=== PATIENT | male | born 1955 | race Caucasian/White ===

== ENCOUNTER → 2017-06-13 | Outpatient (CLI) | payer OTHER ==
--- NOTE | 2017-06-13 14:34 | CT ---
EXAMINATION TYPE: CT chest w con DATE OF EXAM: 06/13/2017 COMPARISON: 06/22/2016 HISTORY: nodule CT DLP: 181.8 mGycm Automated exposure control for dose reduction was used. CONTRAST: CT scan of the chest is performed with IV Contrast, patient injected with 100 mL of Omnipaque 300. FINDINGS: LUNGS: Stable 3 mm nodule superior segment right lower lobe unchanged from previous exam. Vague addit ional nodule previously noted measuring 5 mm anteriorly with more likely within the right upper lobe rather than reported right middle lobe. 1 mm nodule axial image 40 upper lobe retrospectively stable. Calcified granuloma within the right lower lobe also noted. Severe emphysematous changes are noted. Linear density near the left lower lobe appears more likely r elated to scar and atelectasis coronal and sagittal image without discrete nodularity. MEDIASTINUM: There are no greater than 1 cm hilar or mediastinal lymph nodes. No pericardial effusi on is seen. OTHER: Hypertrophic and degenerative change of the spine noted. IMPRESSION: 1. Stable 5 mm or less pulmonary nodules unchanged from previous exam. Continued follow-up to carlos t two-year stability recommended. 2. Severe emphysema.
== END | disposition home or self-care (01) ==
LOC: RADCTMAIN 13:08
PROVIDERS: ATTEND Internal Medicine Critical Care Medicine
DX: J43.9 Emphysema, unspecified (principal); R91.8 Other nonspecific abnormal finding of lung field
CPT/HCPCS: 71260; Q9967

== ENCOUNTER 2018-07-04 14:46 | Emergency (ER) | payer OTHER ==
[2018-07-04] MEDS ORDERED: IPRATROPIUM-ALBUTEROL 3 ML NEB INHALATION STA (15:29)
[2018-07-04] MEDS ORDERED: methylPREDNISolone SOD SUCCI 125 MG/2 ML VIAL IV STA (15:29)
[2018-07-04] MEDS ORDERED: SODIUM CHLORIDE 0.9% 500 ML IV STA (15:29)
[2018-07-04] MEDS ORDERED: SODIUM CHLORIDE 0.9% 1,000 ML IV STA (15:29)
[2018-07-04 16:16] LABS: Basophils % (A) 0 %; Eosinophils # (A) 0.1 k/uL (0-0.7); Eosinophils % (A) 2 %; HCT 45.4 % (39.0-53.0); Lymphocytes # (A) 2.2 k/uL (1.0-4.8); Lymphocytes % (A) 32 %; MCH 30.5 pg (25.0-35.0); MCHC 33.1 g/dL (31.0-37.0); MCV 92.4 fL (80.0-100.0); Mean Platelet Volume 6.7; Monocytes # (A) 0.5 k/uL (0-1.0); Monocytes % (A) 7 %; Neutrophils # (A) 3.9 k/uL (1.3-7.7); Neutrophils % (A) 58 %; Platelet Count 262 k/uL (150-450); RBC 4.91 m/uL (4.30-5.90); RDW 13.6 % (11.5-15.5); WBC 6.8 k/uL (3.8-10.6)
[2018-07-04 16:22] LABS: INR 1.1 (<1.2); Partial Thromboplastin Time 24.1 sec (22.0-30.0); Prothrombin Time 10.4 sec (9.0-12.0)
[2018-07-04 16:31] LABS: ALT 29 U/L (21-72); AST 24 U/L (17-59); Albumin 4.6 g/dL (3.5-5.0); Alkaline Phosphatase 51 U/L (38-126); Anion Gap 10 mmol/L; Blood Urea Nitrogen 9 mg/dL (9-20); Calcium 9.8 mg/dL (8.4-10.2); Carbon Dioxide 23 mmol/L (22-30); Chloride 109 mmol/L (98-107); Glucose 95 mg/dL (74-99); Magnesium 2.1 mg/dL (1.6-2.3); Potassium 4.3 mmol/L (3.5-5.1); Sodium 142 mmol/L (137-145); Total Bilirubin 0.7 mg/dL (0.2-1.3); Total Protein 7.6 g/dL (6.3-8.2)
--- NOTE | 2018-07-04 16:41 | ED ---
URI HPI - General Chief Complaint: Upper Respiratory Infection Stated Complaint: Cough, Diff Breathing Time Seen by Provider: 07/04/18 15:07 Source: patient, RN notes reviewed, old records reviewed Mode of arrival: ambulatory Limitations: no limitations - History of Present Illness Initial Comments: Patient is a 62-year-old male presents emergency department today with chief complaint of cough congestion shortness of breath. Patient states that he is currently homeless. He does have history of COPD. He denies a significant chest pain at this time. States he has been having hard time sleeping due to coughing. He has used his inhaler more frequently. Patient states that he does not smoke at this time. 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 - Related Data Home Medications Medication Instructions Recorded Confirmed Cold & Flu; Day & Night 1 tab PO BID 07/04/18 07/04/18 Paliperidone [Invega] 1.5 mg PO DAILY 07/04/18 07/04/18 QUEtiapine FUMARATE [SEROquel] 50 mg PO HS 07/04/18 07/04/18 Sertraline HCl [Zoloft] 200 mg PO DAILY 07/04/18 07/04/18 Previous Rx's Medication Instructions Recorded Levofloxacin [Levaquin] 750 mg PO DAILY 3 Days #5 tab 07/04/18 guaiFENesin-DM 600/30MG [Mucinex 1 each PO Q12HR #20 tab.er.12h 07/04/18 Dm] predniSONE 50 mg PO DAILY #7 tablet 07/04/18 Allergies Allergy/AdvReac Type Severity Reaction Status Date / Time No Known Allergies Allergy Verified 07/04/18 15:12 Review of Systems ROS Statement: Those systems with pertinent positive or pertinent negative responses have been documented in the HPI. ROS Other: All systems not noted in ROS Statement are negative. Past Medical History Past Medical History: Fibromyalgia Additional Past Medical History / Comment(s): neck and back pain History of Any Multi-Drug Resistant Organisms: None Reported Past Surgical History: Orthopedic Surgery Additional Past Surgical History / Comment(s): eye, carpal tunnel, left rotator cuff Past Psychological History: Anxiety, Depression Smoking Status: Current every day smoker Past Alcohol Use History: None Reported Past Drug Use History: None Reported General Exam - General Exam Comments Initial Comments: Pleasant 62-year-old male. Alert and oriented. No acute distress. Limitations: no limitations General appearance: alert, in no apparent distress Head exam: Present: atraumatic, normocephalic, normal inspection Eye exam: Present: normal appearance, PERRL, EOMI. Absent: scleral icterus, conjunctival injection, periorbital swelling ENT exam: Present: normal exam, mucous membranes moist Neck exam: Present: normal inspection. Absent: tenderness, meningismus, lymphadenopathy Respiratory exam: Present: normal lung sounds bilaterally. Absent: respiratory distress, wheezes, rales, rhonchi, stridor Cardiovascular Exam: Present: regular rate, normal rhythm, normal heart sounds. Absent: systolic murmur, diastolic murmur, rubs, gallop, clicks GI/Abdominal exam: Present: soft, normal bowel sounds. Absent: distended, tenderness, guarding, rebound, rigid Course Vital Signs 07/04/18 07/04/18 07/04/18 14:48 15:36 15:55 Temperature 98.5 F Pulse Rate 92 86 84 Respiratory 22 Rate Blood Pressure 143/84 O2 Sat by Pulse 95 Oximetry 07/04/18 07/04/18 16:56 16:57 Temperature Pulse Rate 81 Respiratory 18 Rate Blood Pressure 147/83 O2 Sat by Pulse 97 Oximetry Medical Decision Making - Lab Data Result diagrams: 07/04/18 15:55 07/04/18 15:55 Lab Results 07/04/18 07/04/18 07/04/18 Range/Units 15:55 15:55 15:55 WBC 6.8 (3.8-10.6) k/uL RBC 4.91 (4.30-5.90) m/uL Hgb 15.0 (13.0-17.5) gm/dL Hct 45.4 (39.0-53.0) % MCV 92.4 (80.0-100.0) fL MCH 30.5 (25.0-35.0) pg MCHC 33.1 (31.0-37.0) g/dL RDW 13.6 (11.5-15.5) % Plt Count 262 (150-450) k/uL Neutrophils % 58 % Lymphocytes % 32 % Monocytes % 7 % Eosinophils % 2 % Basophils % 0 % Neutrophils # 3.9 (1.3-7.7) k/uL Lymphocytes # 2.2 (1.0-4.8) k/uL Monocytes # 0.5 (0-1.0) k/uL Eosinophils # 0.1 (0-0.7) k/uL Basophils # 0.0 (0-0.2) k/uL PT (9.0-12.0) sec INR (<1.2) APTT (22.0-30.0) sec Sodium 142 (137-145) mmol/L Potassium 4.3 (3.5-5.1) mmol/L Chloride 109 H (98-107) mmol/L Carbon Dioxide 23 (22-30) mmol/L Anion Gap 10 mmol/L BUN 9 (9-20) mg/dL Creatinine 0.69 (0.66-1.25) mg/dL Est GFR (CKD-EPI)AfAm >90 (>60 ml/min/1.73 sqM) Est GFR (CKD-EPI)NonAf >90 (>60 ml/min/1.73 sqM) Glucose 95 (74-99) mg/dL Calcium 9.8 (8.4-10.2) mg/dL Magnesium 2.1 (1.6-2.3) mg/dL Total Bilirubin 0.7 (0.2-1.3) mg/dL AST 24 (17-59) U/L ALT 29 (21-72) U/L Alkaline Phosphatase 51 (38-126) U/L Total Creatine Kinase 91 (55-170) U/L CK-MB (CK-2) 1.1 (0.0-2.4) ng/mL CK-MB (CK-2) Rel Index 1.2 Troponin I <0.012 (0.000-0.034) ng/mL NT-Pro-B Natriuret Pep pg/mL Total Protein 7.6 (6.3-8.2) g/dL Albumin 4.6 (3.5-5.0) g/dL 07/04/18 07/04/18 Range/Units 15:55 15:55 WBC (3.8-10.6) k/uL RBC (4.30-5.90) m/uL Hgb (13.0-17.5) gm/dL Hct (39.0-53.0) % MCV (80.0-100.0) fL MCH (25.0-35.0) pg MCHC (31.0-37.0) g/dL RDW (11.5-15.5) % Plt Count (150-450) k/uL Neutrophils % % Lymphocytes % % Monocytes % % Eosinophils % % Basophils % % Neutrophils # (1.3-7.7) k/uL Lymphocytes # (1.0-4.8) k/uL Monocytes # (0-1.0) k/uL Eosinophils # (0-0.7) k/uL Basophils # (0-0.2) k/uL PT 10.4 (9.0-12.0) sec INR 1.1 (<1.2) APTT 24.1 (22.0-30.0) sec Sodium (137-145) mmol/L Potassium (3.5-5.1) mmol/L Chloride (98-107) mmol/L Carbon Dioxide (22-30) mmol/L Anion Gap mmol/L BUN (9-20) mg/dL Creatinine (0.66-1.25) mg/dL Est GFR (CKD-EPI)AfAm (>60 ml/min/1.73 sqM) Est GFR (CKD-EPI)NonAf (>60 ml/min/1.73 sqM) Glucose (74-99) mg/dL Calcium (8.4-10.2) mg/dL Magnesium (1.6-2.3) mg/dL Total Bilirubin (0.2-1.3) mg/dL AST (17-59) U/L ALT (21-72) U/L Alkaline Phosphatase (38-126) U/L Total Creatine Kinase (55-170) U/L CK-MB (CK-2) (0.0-2.4) ng/mL CK-MB (CK-2) Rel Index Troponin I (0.000-0.034) ng/mL NT-Pro-B Natriuret Pep 298 pg/mL Total Protein (6.3-8.2) g/dL Albumin (3.5-5.0) g/dL 07/04/18 16:41 EKG performed at 1559 shows ventricular normal sinus rhythm ventricular rate of 62 bpm. MN interval is 156 ms. QRS duration 76 ms. QT QTc is 400/406 ms. Disposition Clinical Impression: COPD exacerbation Disposition: HOME SELF-CARE Condition: Good Instructions: COPD (Chronic Obstructive Pulmonary Disease) (ED) Additional Instructions: Follow-up with primary care provider and her casing cooker. Patient's take the medications as prescribed. Continue use inhaler. Return to emergency department if any alarming signs or symptoms occur. Prescriptions: guaiFENesin-DM 600/30MG [Mucinex Dm] 1 each PO Q12HR #20 tab.er.12h Levofloxacin [Levaquin] 750 mg PO DAILY 3 Days #5 tab predniSONE 50 mg PO DAILY #7 tablet Is patient prescribed a controlled substance at d/c from ED?: No Referrals: None,Stated [Primary Care Provider] - 1-2 days Steven Carpenter MD [REFERRING] - 1-2 days Time of Disposition: 17:18
[2018-07-04 16:43] LABS: Creatine Kinase 91 U/L (55-170)
[2018-07-04 16:55] LABS: Creatine Kinase MB 1.1 ng/mL (0.0-2.4); Troponin I <0.012 ng/mL (0.000-0.034)
--- NOTE | 2018-07-04 17:10 | XR ---
EXAMINATION TYPE: XR chest 2V DATE OF EXAM: 07/04/2018 COMPARISON: 04/25/2017 HISTORY: Difficulty breathing TECHNIQUE: Frontal and lateral views of the chest are obtained. FINDINGS: Heart and mediastinum are normal. Lungs are clear. Diaphragm is normal. Bony thorax is int act. There are chest leads. There is mild pulmonary hyperinflation. IMPRESSION: There is probably some COPD. No acute lung disease. No change.
[2018-07-04 17:45] VITALS: BP 138/91; PULSE 79; RESP 16; TEMP 98.7
== END 2018-07-04 17:43 | disposition home or self-care (01) ==
LOC: EC 14:46
DX: J44.1 Chronic obstructive pulmonary disease with (acute) exacerbation (principal); M79.7 Fibromyalgia; F41.9 Anxiety disorder, unspecified; F32.9 Major depressive disorder, single episode, unspecified; F17.200 Nicotine dependence, unspecified, uncomplicated; Z79.899 Other long term (current) drug therapy
CPT/HCPCS: 36415; 94640; 93005; 83880; 80053; 82550; 82553; 83735; 84484; 85025; 85610; 85730; 71046; 99285; 96374; 96361 ×2; J2930

== ENCOUNTER 2019-05-15 10:26 | Emergency (ER) | payer OTHER ==
[2019-05-15 11:04] VITALS: RESP 18
[2019-05-15] MEDS ORDERED: KETOROLAC 30 MG/ML 1 ML VIAL IM STA (11:23)
--- NOTE | 2019-05-15 11:35 | ED ---
General Adult HPI - General Chief complaint: Extremity Injury, Upper Stated complaint: Shoulder pain Time Seen by Provider: 05/15/19 11:05 Source: patient Mode of arrival: ambulatory Limitations: physical limitation - History of Present Illness Initial comments: Patient is 63-year-old male presents emergency Department with chief complaint of left shoulder pain. Patient reports 2 rotator cuff surgeries on the left shoulder with the most recent 5 years ago. Patient reports the pain started approximately one week ago and has not resolved. Patient denies limited range of motion above 90. Patient also reports the pain is exacerbated with abduction above 90, flexion and extension. Patient denies edema, erythema or skin discoloration at the left shoulder. Patient denies numbness or tingling. Patient reports the pain is exacerbated with palpation along the anterior and lateral deltoid. Patient also reports the pain has progressed to the left side of his neck. Patient reports limited range of motion in the neck with left rotation. Patient denies taking medication to alleviate his symptoms. Patient reports he recently moved back and is looking for a primary care physician. - Related Data Previous Rx's Medication Instructions Recorded Ibuprofen [Motrin] 600 mg PO Q8HR PRN #30 tab 05/15/19 Allergies Allergy/AdvReac Type Severity Reaction Status Date / Time No Known Allergies Allergy Verified 05/15/19 11:13 Review of Systems ROS Statement: Those systems with pertinent positive or pertinent negative responses have been documented in the HPI. ROS Other: All systems not noted in ROS Statement are negative. Past Medical History Past Medical History: COPD, Fibromyalgia Additional Past Medical History / Comment(s): neck and back pain History of Any Multi-Drug Resistant Organisms: None Reported Past Surgical History: Orthopedic Surgery Additional Past Surgical History / Comment(s): eye, carpal tunnel, left rotator cuff x2 Past Psychological History: Anxiety, Bipolar, Depression Smoking Status: Current some day smoker Past Alcohol Use History: None Reported Past Drug Use History: None Reported - Past Family History Father Family Medical History: No Reported History General Exam Limitations: no limitations General appearance: alert, in no apparent distress Head exam: Present: atraumatic, normocephalic, normal inspection Eye exam: Present: normal appearance, PERRL, EOMI Pupils: Present: normal accommodation ENT exam: Present: normal exam, mucous membranes moist, normal external ear exam Neck exam: Present: normal inspection. Absent: full ROM (Limited range of motion with left rotation.) Respiratory exam: Present: normal lung sounds bilaterally Cardiovascular Exam: Present: regular rate, normal rhythm, normal heart sounds Extremities exam: Present: normal inspection (Scarring from previous shoulder surgeries a left shoulder.), tenderness (Anterior and lateral shoulder tenderness,), other (+2 ulnar and radial pulses bilaterally.). Absent: full ROM (Limited range of motion with abduction above 90., Limited shoulder extension and flexion. Positive Major. Positive empty can test.) Back exam: Present: normal inspection, full ROM Neurological exam: Present: alert, oriented X3 Psychiatric exam: Present: normal affect, normal mood Skin exam: Present: warm, intact, normal color Course Vital Signs 05/15/19 11:00 Temperature 98.3 F Pulse Rate 76 Respiratory 18 Rate Blood Pressure 130/82 O2 Sat by Pulse 99 Oximetry Medical Decision Making - Medical Decision Making Patient is a 63-year-old male presents emergency Department with chief complaint of left shoulder pain. X-ray of the left shoulder is unremarkable. Patient has positive Major and empty can test. Based on physical examination suspect the patient to have tendinitis in the left shoulder. After Toradol patient reports increased range of motion. Patient will be given a sling advised to follow-up with an early childhood specialist. Patient vised alternate between Tylenol and ibuprofen for pain control. Strict return parameters were thoroughly discussed the patient was understanding and agreeable. Case discussed with physician. Disposition Clinical Impression: Tendonitis of shoulder, left Disposition: HOME SELF-CARE Condition: Stable Instructions (If sedation given, give patient instructions): Shoulder Sprain (ED) Additional Instructions: Alternate between Tylenol and ibuprofen for pain control. Please follow-up with early childhood specialist. Return to emergency department if symptoms worsen. Prescriptions: Ibuprofen [Motrin] 600 mg PO Q8HR PRN #30 tab PRN Reason: Pain Is patient prescribed a controlled substance at d/c from ED?: No Referrals: None,Stated [Primary Care Provider] - 1-2 days Tino Fagan MD [STAFF PHYSICIAN] - 1-2 days Time of Disposition: 12:49
--- NOTE | 2019-05-15 12:27 | XR ---
EXAMINATION TYPE: XR shoulder complete LT DATE OF EXAM: 05/15/2019 COMPARISON: NONE HISTORY: Pain TECHNIQUE: Shoulder examined in 3 FINDINGS: The humeral head articulates with the glenoid. The acromio-clavicular junction is normal. No acute fractures or dislocations are evident. Surgical screws are present from prior rotator cuff tear repair A follow up study can be performed 7-10 days from acute trauma for continued pain. IMPRESSION: 1. No acute osseous abnormality left shoulder
[2019-05-15 13:30] VITALS: BP 134/81; PULSE 62; TEMP 97.9
== END 2019-05-15 13:29 | disposition home or self-care (01) ==
LOC: EC 10:26
DX: M75.92 Shoulder lesion, unspecified, left shoulder (principal); F17.200 Nicotine dependence, unspecified, uncomplicated; Z98.890 Other specified postprocedural states
CPT/HCPCS: 73030; 99283; 96372; J1885

== ENCOUNTER 2019-08-30 15:36 | Emergency (ER) | payer OTHER ==
[2019-08-30 15:54] VITALS: TEMP 76
[2019-08-30 17:03] LABS: Basophils % (A) 0 %; Eosinophils # (A) 0.3 k/uL (0-0.7); Eosinophils % (A) 3 %; HCT 45.4 % (39.0-53.0); HGB 14.8 gm/dL (13.0-17.5); Lymphocytes # (A) 2.1 k/uL (1.0-4.8); Lymphocytes % (A) 24 %; MCHC 32.7 g/dL (31.0-37.0); MCV 94.8 fL (80.0-100.0); Mean Platelet Volume 6.3; Monocytes # (A) 0.8 k/uL (0-1.0); Monocytes % (A) 9 %; Neutrophils # (A) 5.2 k/uL (1.3-7.7); Neutrophils % (A) 60 %; Platelet Count 339 k/uL (150-450); RBC 4.79 m/uL (4.30-5.90); RDW 13.6 % (11.5-15.5); WBC 8.7 k/uL (3.8-10.6)
[2019-08-30 17:09] LABS: INR 0.9 (<1.2); Partial Thromboplastin Time 26.2 sec (22.0-30.0); Prothrombin Time 9.9 sec (9.0-12.0)
[2019-08-30 17:11] LABS: ALT 27 U/L (21-72); AST 31 U/L (17-59); African American GFR (CKD) >90 (>60 ml/min/1.73 sqM); Albumin 4.5 g/dL (3.5-5.0); Alkaline Phosphatase 57 U/L (38-126); Anion Gap 8 mmol/L; Blood Urea Nitrogen 18 mg/dL (9-20); Calcium 9.6 mg/dL (8.4-10.2); Carbon Dioxide 28 mmol/L (22-30); Chloride 103 mmol/L (98-107); Glucose 94 mg/dL (74-99); Non-African American GFR(CKD) >90 (>60 ml/min/1.73 sqM); Potassium 4.3 mmol/L (3.5-5.1); Sodium 139 mmol/L (137-145); Total Bilirubin 0.4 mg/dL (0.2-1.3); Total Protein 7.5 g/dL (6.3-8.2)
[2019-08-30] MEDS ORDERED: SODIUM CHLORIDE 0.9% 1,000 ML IV STA ×2 (17:20)
[2019-08-30] MEDS ORDERED: SODIUM CHLORIDE 0.9% 500 ML 500 ML IV STA (17:20)
[2019-08-30] MEDS ORDERED: KETOROLAC 30 MG/ML 1 ML VIAL IVP STA (17:20)
--- NOTE | 2019-08-30 17:21 | ED ---
Chest Pain HPI - General Chief Complaint: Chest Pain Stated Complaint: chest pain= Time Seen by Provider: 08/30/19 16:28 Source: patient, RN notes reviewed, old records reviewed Mode of arrival: wheelchair Limitations: no limitations - History of Present Illness Initial Comments: This is a 63-year-old right shoulder pain right sided arm pain. Patient injured including a lifting injury 2 days ago and increasingly worse and worse with movement of the right arm. Otherwise no shortness of breath and diaphoresis no family history of sick contacts. Patient does have history of shoulder injuries in the past secondary to mechanical injuries repetitive movement. Patient states this feels the same the modifying factors to improve. He is not tried Motrin and Tylenol. MD Complaint: other (Shoulder pain) -: days(s) (2) Onset: other (After lifting multiple objects) Pain Radiation: RUE Severity: mild Quality: aching Consistency: intermittent Improves With: rest Worsens With: movement Anginal Symptoms: other (None) Other Symptoms: other (Nontender) Treatments Prior to Arrival: none - Related Data Previous Rx's Medication Instructions Recorded Ibuprofen [Motrin] 600 mg PO Q8HR PRN #30 tab 05/15/19 Allergies Allergy/AdvReac Type Severity Reaction Status Date / Time No Known Allergies Allergy Verified 05/15/19 11:13 Review of Systems ROS Statement: Those systems with pertinent positive or pertinent negative responses have been documented in the HPI. ROS Other: All systems not noted in ROS Statement are negative. EKG Findings - EKG Comments: EKG Findings:: EKG shows sinus rhythm rate of 60, WI 180, QRS 70, QTC 400 Past Medical History Past Medical History: COPD, Fibromyalgia Additional Past Medical History / Comment(s): neck and back pain History of Any Multi-Drug Resistant Organisms: None Reported Past Surgical History: Orthopedic Surgery Additional Past Surgical History / Comment(s): eye, carpal tunnel, left rotator cuff x2 Past Psychological History: Anxiety, Bipolar, Depression Smoking Status: Current some day smoker Past Alcohol Use History: None Reported Past Drug Use History: None Reported - Past Family History Father Family Medical History: No Reported History General Exam - General Exam Comments Initial Comments: Right arm is worse and taken through range of motion Limitations: no limitations General appearance: alert, in no apparent distress Head exam: Present: atraumatic, normocephalic, normal inspection Eye exam: Present: normal appearance, PERRL, EOMI. Absent: scleral icterus, conjunctival injection, periorbital swelling ENT exam: Present: normal exam, mucous membranes moist Neck exam: Present: normal inspection. Absent: tenderness, meningismus, lymphadenopathy Respiratory exam: Present: normal lung sounds bilaterally. Absent: respiratory distress, wheezes, rales, rhonchi, stridor Cardiovascular Exam: Present: regular rate, normal rhythm, normal heart sounds. Absent: systolic murmur, diastolic murmur, rubs, gallop, clicks GI/Abdominal exam: Present: soft, normal bowel sounds. Absent: distended, tenderness, guarding, rebound, rigid Extremities exam: Present: normal inspection, full ROM, normal capillary refill. Absent: tenderness, pedal edema, joint swelling, calf tenderness Back exam: Present: normal inspection Neurological exam: Present: alert, oriented X3, CN II-XII intact Psychiatric exam: Present: normal affect, normal mood Skin exam: Present: warm, dry, intact, normal color. Absent: rash Course Vital Signs 08/30/19 08/30/19 08/30/19 15:51 17:21 19:02 Temperature 76 F L 76 F L Pulse Rate 79 62 62 Respiratory 16 18 18 Rate Blood Pressure 113/76 129/80 136/82 O2 Sat by Pulse 97 96 96 Oximetry - Reevaluation(s) Reevaluation #1: Records are reviewed Pain is resolved. Toradol Chest Pain MDM - MDM 63 male with right-sided shoulder pain.symptoms are improved w Motrin. Symptoms are resolved Disposition Clinical Impression: Right shoulder pain, Sprain of right shoulder Disposition: HOME SELF-CARE Condition: Good Instructions (If sedation given, give patient instructions): Shoulder Sprain (ED), Shoulder Pain (ED) Is patient prescribed a controlled substance at d/c from ED?: No Referrals: Shahida Cooper MD [Primary Care Provider] - 1-2 days
[2019-08-30 17:22] VITALS: PULSE 62; RESP 18
[2019-08-30 17:43] LABS: Creatine Kinase 117 U/L (55-170)
[2019-08-30 17:55] LABS: Creatine Kinase MB 2.1 ng/mL (0.0-2.4); Troponin I <0.012 ng/mL (0.000-0.034)
[2019-08-30 19:03] VITALS: BP 136/82
== END 2019-08-30 19:03 | disposition home or self-care (01) ==
LOC: EC 15:36
DX: S43.401A Unspecified sprain of right shoulder joint, initial encounter (principal); F17.200 Nicotine dependence, unspecified, uncomplicated; X50.0XXA Overexertion from strenuous movement or load, initial encounter; Y93.89 Activity, other specified
CPT/HCPCS: 99285; 96374; 96361 ×2; 36415; 93005; 80053; 82550; 82553; 84484; 85025; 85610; 85730; J1885